=== PATIENT | male | born 1965 | race Hispanic/Latino ===

== ENCOUNTER → 2019-09-02 | Outpatient (CLI) | payer BC ==
[~2019-09-02] MED LIST: AMLODIPINE BESYL5 MG PO; BACTRIM DS TAB1 EACH PO; CIPRO500 MG PO; LISINOPRIL-HCT1 EAC2 PO; MECLIZINE HCL25 MG PO; NO MEDS; PREDNISONE20 MG PO; VITAMIN D50000 UNIT PO
--- NOTE | 2019-09-02 09:55 | Diagnostic Imaging Report ---
Right knee MRI without contrast. History: Knee pain. Twisting injury. Decreased range of motion. Pain not responding to conservative management Comparison: None. Technique: Multiplanar multi-sequence MRI of the knee without contrast. Findings: Medial compartment: Complex tear involving the posterior horn and body segments of the medial meniscus. Articular cartilage fraying and deep fissuring in the medial compartment. Peripheral marginal osteophytes. The medial collateral ligament complex is intact. Lateral compartment: Complex displaced tear involving the posterior horn and body segments of the lateral meniscus. Articular cartilage fraying and deep measuring in the lateral compartment with mild underlying bone marrow edema. Peripheral marginal osteophytes. The lateral collateral ligament complex is intact. Intercondylar notch: The ACL and PCL are intact. Patellofemoral compartment: Articular cartilage fraying and fissuring in the patellofemoral compartment with mild underlying bone marrow edema. Extensor mechanism: The quadriceps and patellar tendons are normal. Other findings: There is a joint effusion and synovitis. There is no acute fracture, subluxation or avascular necrosis. 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 Complex medial meniscus tear with associated degenerative arthrosis in the medial compartment of the knee. Articular cartilage fraying and deep fissuring in the patellofemoral compartment with mild underlying bone marrow edema. Signed by: Dr. Frandy Hansen M.D. on 09/02/2019 9:53 AM
== END ==
LOC: MRI 07:45
PROVIDERS: ATTEND Orthopaedic Surgery
DX: M25.561 Pain in right knee (principal); S83.281A Other tear of lateral meniscus, current injury, right knee, initial encounter; X50.1XXA Overexertion from prolonged static or awkward postures, initial encounter

== ENCOUNTER → 2019-12-18 | Outpatient (CLI) | payer BC ==
--- NOTE | 2019-12-18 09:15 | Diagnostic Imaging Report ---
TECHNIQUE: Magnetic resonance imaging of the LEFT KNEE was performed WITHOUT injected contrast. HISTORY: Left knee COMPARISON: None available. FINDINGS: LIGAMENTS AND TENDONS: ACL: Intact PCL: Intact Collateral ligaments: Intact Iliotibial band: Unremarkable Popliteal tendon: Intact Extensor mechanism: Intact JOINT: Menisci: Medial: Complex tearing of the body and posterior horn with dominant horizontal component. Lateral: Complex tearing of the anterior body and horn with dominant horizontal component and with parameniscal cyst anteriorly. Articular Cartilage: Medial Compartment: Partial-thickness cartilage loss, with areas of high-grade erosion Lateral Compartment: Partial-thickness cartilage loss Patellofemoral Compartment: Partial-thickness cartilage loss Joint Fluid: The amount of fluid within the joint is within physiologic limits. BONE: No focal or infiltrative bone marrow replacing abnormality. No acute fracture. SOFT TISSUES: Otherwise, unremarkable. IMPRESSION: Medial and lateral meniscus complex tearing with partial thickness cartilage loss Signed by: Dr. Danny Billingsley M.D. on 12/18/2019 9:12 AM
== END ==
LOC: MRI 07:42
PROVIDERS: ATTEND Orthopaedic Surgery
DX: M25.562 Pain in left knee (principal); S83.242A Other tear of medial meniscus, current injury, left knee, initial encounter

== ENCOUNTER → 2020-02-03 | Outpatient (CLI) | payer BC ==
[~2020-02-03] MED LIST changes: +GADOBENATE DIMEGLUMINE 1 ML IV ONE; +IOPAMIDOL 300 MG/ML 15ML VIAL IT ONE
--- NOTE | 2020-02-03 14:37 | Diagnostic Imaging Report ---
EXAM: INJECTION ARTHROGRAM SHOULDER, ARTHROCENTESIS-INT JOINT DATE: 02/03/2020 12:00 AM INDICATION: Right shoulder pain COMPARISON: None Physician performing procedure: Dr. Olamide Mays PROCEDURES PERFORMED: Fluoroscopically-guided right glenohumeral arthrogram with MRI to follow Fluoro time: 0.5 Dose: 3.6mGy Anesthesia: Local, 1% lidocaine Devices: 22 gauge BD Quincke needle PROCEDURE REPORT: After written and verbal consent were obtained, the patient was placed supine on the fluoroscopy table with the right arm in external rotation. Using fluoroscopic guidance, sterile technique and local anesthesia, a 22 gauge, 3.5 inch needle was inserted percutaneously into the right glenohumeral joint. Proper placement was confirmed by injecting Isovue 300 into the joint under fluoroscopy. Next, 10cc of a 1:100 mixture of Multihance with Isovue 300 were then injected. Complications: None Blood loss: Minimal Samples: None Patient disposition: MRI in stable condition. IMPRESSION: Uncomplicated fluoroscopically-guided right glenohumeral joint arthrogram with MRI to follow. Contrast is within the joint. See MRI report for full findings. Signed by: Olamide Mays MD on 02/03/2020 2:33 PM
--- NOTE | 2020-02-03 15:01 | Diagnostic Imaging Report ---
TECHNIQUE: Magnetic resonance imaging of the RIGHT SHOULDER was performed after intra-articular injection of contrast. COMPARISON: None available. HISTORY: Pain FINDINGS: MUSCLES AND TENDONS: Rotator Cuff: Tendons: Tendinosis involving the supraspinatus and infraspinatus without high-grade tear. High-grade partial thickness articular sided tearing of the subscapularis. Muscles: Mild subscapularis atrophy. Biceps Tendon: The long head of the biceps tendon is within the bicipital groove. Longitudinal split tearing GLENOHUMERAL JOINT: Glenoid Labrum: Superior and posterior labral tearing with multilobular para labral cyst measuring approximately 1.4 cm. Articular Cartilage: Partial-thickness cartilage loss AC JOINT AND ACROMION: Mild hypertrophic degenerative changes of the acromioclavicular joint. The acromion is unremarkable. Bone: No acute fracture. Soft Tissues: Otherwise, the soft tissues appear unremarkable. IMPRESSION: Subscapularis high-grade partial-thickness articular sided tearing with mild atrophy. Long head biceps longitudinal split tearing. Superior and posterior labral tearing with paralabral cyst. Signed by: Dr. Danny Billingsley M.D. on 02/03/2020 2:58 PM
== END ==
LOC: DX 12:44
PROVIDERS: ATTEND Orthopaedic Surgery
DX: M75.41 Impingement syndrome of right shoulder (principal); S43.421A Sprain of right rotator cuff capsule, initial encounter
CPT/HCPCS: 20605; 23350; 73222; A9577; Q9967

== ENCOUNTER → 2020-07-14 | Outpatient (CLI) | payer OTHER ==
[~2020-07-14] MED LIST changes: +COVID-19 VACC, MRNA(MODERNA)/PF 100 MCG/0.5 ML VIAL IM ONE; -GADOBENATE DIMEGLUMINE 1 ML IV ONE; -IOPAMIDOL 300 MG/ML 15ML VIAL IT ONE
== END ==
LOC: VACCPMC 16:30
DX: Z23 Encounter for immunization (principal); Z20.828 Contact with and (suspected) exposure to other viral communicable diseases

== ENCOUNTER → 2020-08-19 | Outpatient (CLI) | payer OTHER | END | DRG 951 | LOC: VACCPMC 10:00 | DX: Z23 Encounter for immunization (principal); Z20.822 Contact with and (suspected) exposure to COVID-19 | CPT/HCPCS: 0012A; 91301 ==